=== PATIENT | female | born 1950 | race Caucasian/White ===

== ENCOUNTER 2019-02-07 15:01 | Emergency (ER) | payer OTHER, MEDICAID ==
[~2019-02-07] VITALS: Ht 157.5 cm; Wt 65.0 kg
[2019-02-07] MEDS ORDERED: ONDANSETRON HCL 4MG/2ML INJ IV STA (15:30)
[2019-02-07] MEDS ORDERED: SODIUM CHLORIDE 0.9% 1,000 ML IV ONE (15:30)
[2019-02-07 16:17] LABS: BASOPHILS % 0.3 % (0.0-2.0); EOSINOPHILS % 1.7 % (0.0-5.0); HEMOGLOBIN. 14.7 g/dL (12.0-16.0); LYMPHOCYTES % 15.5 % (20.0-50.0); MEAN CORPUSCULAR HEMOGLOBIN 31.3 pg (28.0-32.0); MEAN CORPUSCULAR VOLUME 87.5 fL (81.0-99.0); MEAN PLATELET VOLUME 8.1 fl (7.4-10.4); MONOCYTES % 4.1 % (2.0-8.0); NEUTROPHILS % 78.4 % (40.0-76.0); PLATELET 194 x1000/uL (130-400); RED BLOOD CELL COUNT 4.68 mill/uL (4.2-5.4); RED CELL DISTRIBUTION WIDTH 12.6 % (11.6-14.6)
[2019-02-07 16:24] LABS: CHLORIDE 102 mEq/L (98-107)
[2019-02-07 16:25] LABS: PROTHROMBIN TIME 10.2 sec (9.6-11.0)
[2019-02-07 16:28] LABS: ETHANOL BLOOD < 10 mg/dL
[2019-02-07] MEDS ORDERED: NALOXONE HCL 1 MG/ML 2ML VIAL ONE (16:54)
[2019-02-07] MEDS ORDERED: ONDANSETRON HCL 4MG/2ML INJ IV ONE (17:00)
[2019-02-07] MEDS ORDERED: NALOXONE HCL 1 MG/ML 2ML VIAL IV ONE (17:00)
[2019-02-07] MEDS ORDERED: LORAZEPAM 2MG/ML CPJ IV ONE (17:30)
[2019-02-07] MEDS ORDERED: PROPOFOL 10MG/ML 100ML 100 ML IV SCH (17:30)
[2019-02-07 17:40] LABS: CLARITY URINE CLEAR (CLEAR); COLOR URINE YELLOW (YELLOW); KETONES URINE TRACE (NEGATIVE); LEUKOCYTE ESTERASE URINE NEGATIVE (NEGATIVE); NITRITE URINE NEGATIVE (NEGATIVE); OCCULT BLOOD URINE TRACE (NEGATIVE); PH URINE 6.5 (4.5-8.0); PROTEIN URINE 3+ (NEGATIVE); SPECIFIC GRAVITY URINE 1.022 (1.005-1.030); UROBILINOGEN URINE 0.2 E.U./dL (0.2-1.0)
[2019-02-07 17:57] LABS: *AMPHETAMINES SCREEN URINE NEGATIVE (NEGATIVE); *BARBITURATES SCREEN URINE NEGATIVE (NEGATIVE)
[2019-02-07 17:58] LABS: *BENZODIAZEPINES SCREEN URINE NEGATIVE (NEGATIVE); *COCAINE SCREEN URINE NEGATIVE (NEGATIVE); CANNABINOID URINE SCREEN NEGATIVE (NEGATIVE); METHADONE URINE SCREEN NEGATIVE (NEGATIVE); OPIATES URINE SCREEN NEGATIVE (NEGATIVE); PHENCYCLIDINE URINE SCREEN NEGATIVE (NEGATIVE)
[2019-02-07] MEDS ORDERED: CLONIDINE 0.1MG TABLET PO ONE (19:00)
[2019-02-07 19:11] VITALS: BP 176/78
== END 2019-02-07 19:16 | disposition home or self-care (01) ==
LOC: ER 15:01
DX: R55 Syncope and collapse (principal); E11.65 Type 2 diabetes mellitus with hyperglycemia; I10 Essential (primary) hypertension; R11.10 Vomiting, unspecified
CPT/HCPCS: 36415; 70450; 80053; 80305; 80320; 81003; 82140; 83605; 83690; 84484; 85025; 85610; 93005; 96361; 96374; 99284; J2310; J2405; J7030; G0480

== ENCOUNTER 2020-10-09 05:32 | Emergency (ER) | payer OTHER, MEDICAID ==
[~2020-10-09] VITALS: Ht 152.4 cm; Wt 61.2 kg
[2020-10-09] MEDS ORDERED: ONDANSETRON HCL 4MG/2ML INJ IV STA (05:39)
[2020-10-09] MEDS ORDERED: LABETALOL 5MG/ML SYR 20 MG/4 ML SYRINGE IV ONE (05:45)
[2020-10-09 06:20] LABS: BASOPHILS % 0.5 % (0.0-2.0); EOSINOPHILS % 1.5 % (0.0-5.0); HEMATOCRIT. 31.2 % (36.0-48.0); LYMPHOCYTES % 15.2 % (20.0-50.0); MEAN CORPUSCULAR HEMOGLOBIN 30.2 pg (28.0-32.0); MEAN CORPUSCULAR VOLUME 85.9 fL (81.0-99.0); MEAN PLATELET VOLUME 7.4 fl (7.4-10.4); MONOCYTES % 6.8 % (2.0-8.0); PLATELET 320 x1000/uL (130-400); RED BLOOD CELL COUNT 3.63 mill/uL (4.2-5.4)
[2020-10-09 06:24] LABS: CHLORIDE 98 mEq/L (98-107)
[2020-10-09] MEDS ORDERED: IOHEXOL-350 100 ML BOTTLE ONE (06:28)
[2020-10-09 06:29] LABS: ETHANOL BLOOD 11 mg/dL; INR 1.1; PROTHROMBIN TIME 11.4 sec (9.6-11.0)
[2020-10-09 06:32] LABS: LDL CHOLESTEROL 157 mg/dL (5-100)
[2020-10-09] MEDS ORDERED: ASPIRIN 325MG EC TABLET PO ONE (07:15)
[2020-10-09] MEDS ORDERED: POTASSIUM CHLORIDE 20MEQ TABLET SR PO NR (08:00)
[2020-10-09] MEDS ORDERED: INSULIN REGULAR (HUMULIN R) 300UNITS/3ML VIAL SUBCUT NR (08:30)
[2020-10-09] MEDS ORDERED: INSULIN REGULAR (HUMULIN R) UD 100 UNITS/ML SYR SUBCUT NR (09:30)
[2020-10-09 12:00] VITALS: BP 184/81
== END 2020-10-09 11:31 | disposition short-term general hospital (02) ==
LOC: ER 05:32 → CANBEDREQ 11:36
DX: I10 Essential (primary) hypertension (principal); E11.9 Type 2 diabetes mellitus without complications; I63.9 Cerebral infarction, unspecified; E87.6 Hypokalemia; D64.9 Anemia, unspecified
CPT/HCPCS: 36415; 70450; 70496; 70498; 71045; 80053; 80320; 82962; 83721; 84484; 85025; 85610; 93005; 96374; 96375; 99291; J1815; J2405; J3490; Q9967; G0480